=== PATIENT | female | born 1975 | race African-American/Black ===

== ENCOUNTER 2016-10-21 16:49 | Emergency (ER) | payer MEDICAID ==
[~2016-10-21] VITALS: Ht 165.1 cm; Wt 105.0 kg
[~2016-10-21 16:49] MED LIST: FERR324T4 PO; FURO20TA PO; IBUP600 PO; IBUP800T23 PO; POTA-243 PO; TRAM50 PO
[2016-10-21 16:50] VITALS: BP 125/64; PULSE 84; RESP 16; TEMP 98.1; O2SAT 98
--- NOTE | 2016-10-21 17:44 | PD ---
HPI Chief Complaint: Injury Time Seen by Provider: 17:31 Travel History International Travel<30 days: No Contact w/Intl Traveler<30days: No Traveled to known affect area: No History of Present Illness HPI 41-year-old female presents to the emergency Department with complaint of left knee pain after falling on it this morning. She states that she was piggybacking onto his back and they fell over and landed on her knee. Denies paresthesias, loss of sensation. Reports decreased motion secondary to pain and swelling. Denies fever, chills, nausea, vomiting. Has been walking on it but has been very painful. Has not taken any medications or drainage from his to alleviate her symptoms. No known relieving factors. Pain is aggravated with walking and palpation. No known allergies. Denies significant past medical history. No other modifying factors or associated signs and symptoms. PFSH Past Medical History ?: Not LMP: 09/22/16 Tubal Ligation: Yes Past Surgical History Abdominal Surgery: Yes (hernia) Gynecologic Surgery: Yes (LEFT OVARY AND TUBE REMOVAL ) Social History Alcohol Use: Yes (social) Tobacco Use: No Substance Use: No Allergies-Medications (Allergen,Severity, Reaction): Coded Allergies: No Known Allergies (Verified , 10/21/16) Reported Meds & Prescriptions Reported Meds & Active Scripts Active Ibuprofen 800 Mg Tab 800 Mg PO Q6HR PRN Review of Systems Except as stated in HPI: all other systems reviewed are Neg Physical Exam Narrative GENERAL: Well-nourished, well-developed male patient, in no acute distress SKIN: Warm and dry. HEAD: Atraumatic. Normocephalic. EYES: Pupils equal and round. No scleral icterus. No injection or drainage. ENT: Mucosa pink and moist. Airway patent. NECK: Trachea midline. CARDIOVASCULAR: Regular rate. RESPIRATORY: No accessory muscle use. MUSCULOSKELETAL: Left knee edematous. No erythema. Increased range of motion with flexion less than 90. Point tenderness to lateral and patellar aspect. 2 + pedal pulse. Left lower extremity supple and non-tense. Sensory intact. Knee joints stable. Negative drawer test. No cyanosis. No obvious deformity. NEUROLOGICAL: Awake and alert. Oriented 3. No obvious cranial nerve deficits. Motor grossly within normal limits. Normal speech. PSYCHIATRIC: Appropriate mood and affect; insight and judgment normal. Data Data Last Documented VS Vital Signs Date Time Temp Pulse Resp B/P Pulse Ox O2 Delivery O2 Flow Rate FiO2 10/21/16 16:50 98.1 84 16 125/64 98 Orders Knee, Complete (4vws) (10/21/16 17:22) Ice/Cold Pack (10/21/16 17:51) Ibuprofen (Motrin) (10/21/16 18:15) Crutches (10/21/16 18:14) Splint Or Brace Apply/Monitor (10/21/16 18:14) [facility] Medical Decision Making Medical Screen Exam Complete: Yes Emergency Medical Condition: Yes Medical Record Reviewed: Yes Differential Diagnosis Knee strain, knee contusion, knee dislocation, knee fracture Narrative Course 31-year-old female with left knee injury. Left lower extremity is supple and non-tense with 2+ pedal pulses and sensory intact. Ice pack applied. Ibuprofen administered in the ER. Left knee x-ray ordered. 1810: Left knee x-ray concludes No acute bony injury. Possible small effusion. Russ bandage applied to left knee. Crutches provided for support. Ibuprofen prescribed for home. Instructed patient to follow up with orthopedics as needed. Patient is medically cleared and stable for discharge. Discussed reasons to return to the emergency department. Instructed patient to follow up with primary care provider. Patient agrees with treatment plan. The patients vital signs are stable and the patient is stable for outpatient follow-up and treatment. Patient discharged home, stable and in no acute distress. Diagnosis Primary Impression: Left knee sprain Qualified Code: S83.92XA - Sprain of left knee, unspecified ligament, initial encounter Referrals: Orthopaedic Surgeon Primary Care Physician Patient Instructions: Crutch Instructions (ED), General Instructions, Knee Sprain (ED) Additional Instructions: Tylenol or ibuprofen as needed and as directed to reduce pain and inflammation Rest, ice, compress, and elevate extremity to decrease pain and inflammation Knee Brace for support Crutches for support Avoid aggravating activity; increase activity as tolerated Follow-up with primary care provider Follow-up with orthopedics as needed Return to the emergency department immediately with worsening symptoms Med/Other Pt SpecificInfo: Prescription(s) given Scripts Ibuprofen 800 Mg [id number] Mg PO Q6HR PRN (PAIN) #30 TAB Ref 0 Prov:Lindsey Hawkins 10/21/16 Disposition: 01 DISCHARGE HOME Condition: Stable Lindsey Hawkins Oct 21, 2016 17:44
--- NOTE | 2016-10-21 18:09 | RADRPT ---
EXAM DATE/TIME: 10/21/2016 17:30 [facility] COMPARISON: No previous studies available for comparison. INDICATIONS : Left knee pain post fall today MEDICAL HISTORY : None. SURGICAL HISTORY : None. ENCOUNTER: Initial ACUITY: 1 day PAIN SCORE: 10/10 LOCATION: Left medial knee FINDINGS: There is no definite evidence of fracture or dislocation. There may be a small suprapatellar effusion . Mild degenerative changes present with tiny osteophytes in the medial and patellofemoral compartmen ts. CONCLUSION: No acute bony injury. Possible small effusion Mustapha Juarez MD on October 21, 2016 at 18:06 Board Certified Radiologist. This report was verified electronically.
[2016-10-21] MEDS ORDERED: IBUP800T23 PO (18:13)
[2016-10-21] MEDS ORDERED: IBUPROFEN 800 MG TAB PO ONE (18:15)
[2016-11-11] MEDS ORDERED: IBUP800T23 PO (11:01)
[2016-11-11] MEDS ORDERED: FURO1TAB62 PO (11:01)
== END 2016-10-21 18:30 | disposition home or self-care (01) ==
LOC: NEPB 16:49
DX: S83.92XA Sprain of unspecified site of left knee, initial encounter (principal); W17.89XA Other fall from one level to another, initial encounter; Y93.89 Activity, other specified; Y92.9 Unspecified place or not applicable
CPT/HCPCS: 73564; 99283; E0113